=== PATIENT | female | born 1945 | race Two or more races ===

== ENCOUNTER 2017-04-25 16:31 | Emergency (ER) | payer OTHER ==
[~2017-04-25] VITALS: Ht 167.6 cm; Wt 65.8 kg
[2017-04-25] MEDS ORDERED: ZOCOR5 MG (16:48)
[2017-04-25] MEDS ORDERED: NEXIUM 24HR20 M1 (16:48)
[2017-04-25] MEDS ORDERED: TENORMIN25 MG (16:48)
[2017-04-25] MEDS ORDERED: [UNRECOGNIZED DRUG - OTHER] (16:49)
[2017-04-26] MEDS ORDERED: LEVSIN/SL0.125 MG SL (01:05)
[2017-04-26] MEDS ORDERED: CIPRO500 MG PO (01:05)
== END 2017-04-26 01:13 | disposition home or self-care (01) ==
LOC: ER 16:31
DX: R10.32 Left lower quadrant pain (principal); N39.0 Urinary tract infection, site not specified

== ENCOUNTER 2017-06-26 12:46 | Emergency (ER) | payer OTHER ==
[~2017-06-26] VITALS: Ht 167.6 cm; Wt 68.0 kg
[~2017-06-26 12:46] MED LIST: CIPRO500 MG PO; LEVSIN/SL0.125 MG SL; NEXIUM 24HR20 M1; TENORMIN25 MG; ZOCOR5 MG; [UNRECOGNIZED DRUG - OTHER]
[2017-06-26] MEDS ORDERED: NEXIUM40 M1 (12:53)
[2017-06-26] MEDS ORDERED: CALTRATE+D3 PL1 EACH (12:53)
== END 2017-06-26 23:20 | disposition home or self-care (01) ==
LOC: ER 12:46
DX: R10.84 Generalized abdominal pain (principal)

== ENCOUNTER 2017-06-28 17:47 | Inpatient (IN) | payer OTHER ==
[~2017-06-28] VITALS: Ht 167.6 cm; Wt 68.0 kg
[~2017-06-28 17:47] MED LIST changes: +CALTRATE+D3 PL1 EACH; +NEXIUM40 M1
== END 2017-07-11 14:02 | disposition home or self-care (01) | DRG 330 ==
LOC: ER 17:47 → MEDI 06-29 08:30
PROVIDERS: Surgery
PROC: BW21YZZ Computerized Tomography (CT Scan) of Abdomen and Pelvis using Other Contrast (ICD-10-PCS; 2017-06-29)
PROC: 3E0336Z Introduction of Nutritional Substance into Peripheral Vein, Percutaneous Approach (ICD-10-PCS; 2017-07-02)
PROC: 0WJG4ZZ Inspection of Peritoneal Cavity, Percutaneous Endoscopic Approach (ICD-10-PCS; 2017-07-03)
PROC: 0DN80ZZ Release Small Intestine, Open Approach (ICD-10-PCS; 2017-07-03)
PROC: 0DQ80ZZ Repair Small Intestine, Open Approach (ICD-10-PCS; principal; 2017-07-03 11:00)
PROC: 02HV33Z Insertion of Infusion Device into Superior Vena Cava, Percutaneous Approach (ICD-10-PCS; 2017-07-04)
PROC: 3E0F7GC Introduction of Other Therapeutic Substance into Respiratory Tract, Via Natural or Artificial Opening (ICD-10-PCS; 2017-07-07)
DX: K56.51 Intestinal adhesions [bands], with partial obstruction (principal); K91.71 Accidental puncture and laceration of a digestive system organ or structure during a digestive system procedure; B02.8 Zoster with other complications; K91.89 Other postprocedural complications and disorders of digestive system; E86.0 Dehydration; I10 Essential (primary) hypertension; E78.4 Other hyperlipidemia; K29.60 Other gastritis without bleeding; K52.89 Other specified noninfective gastroenteritis and colitis; D50.8 Other iron deficiency anemias; K56.0 Paralytic ileus; R05 Cough

== ENCOUNTER 2017-07-21 22:32 | Inpatient (IN) | payer OTHER ==
[~2017-07-21] VITALS: Ht 167.6 cm; Wt 63.5 kg
[2017-07-29] MEDS ORDERED: HYOSCYAMINE0.125 M1 SL (14:18)
[2017-07-29] MEDS ORDERED: GASTRACE CAPSU1 EACH PO (14:19)
[2017-07-29] MEDS ORDERED: GAS RELIEF125 M1 PO (14:20)
[2017-07-29] MEDS ORDERED: MILK OF MA400 MG/5 M PO (14:21)
== END 2017-07-29 15:43 | disposition home or self-care (01) | DRG 390 ==
LOC: ER 22:32 → SURH 07-22 08:37
PROC: 3E0336Z Introduction of Nutritional Substance into Peripheral Vein, Percutaneous Approach (ICD-10-PCS; principal; 2017-07-22)
PROC: 05H333Z Insertion of Infusion Device into Right Innominate Vein, Percutaneous Approach (ICD-10-PCS; 2017-07-25)
DX: K56.690 Other partial intestinal obstruction (principal); I10 Essential (primary) hypertension; E78.4 Other hyperlipidemia; E86.0 Dehydration; D64.89 Other specified anemias; K59.09 Other constipation

== ENCOUNTER 2017-08-30 20:13 | Emergency (ER) | payer OTHER ==
[~2017-08-30] VITALS: Ht 167.6 cm; Wt 62.6 kg
[~2017-08-30 20:13] MED LIST changes: +GAS RELIEF125 M1 PO; +GASTRACE CAPSU1 EACH PO; +HYOSCYAMINE0.125 M1 SL; +MILK OF MA400 MG/5 M PO
== END 2017-08-30 23:56 | disposition home or self-care (01) ==
LOC: ER 20:13
DX: K29.60 Other gastritis without bleeding (principal)

== ENCOUNTER 2017-09-26 07:44 | Emergency (ER) | payer OTHER ==
[~2017-09-26] VITALS: Ht 167.6 cm; Wt 62.1 kg
[2017-09-26] MEDS ORDERED: FENOFIBRATE40 MG (08:05)
[2017-09-26] MEDS ORDERED: ZOCOR20 MG (08:06)
[2017-09-26] MEDS ORDERED: ASPIR 8181 MG (08:06)
== END 2017-09-26 16:16 | disposition home or self-care (01) ==
LOC: ER 07:44
DX: R10.11 Right upper quadrant pain (principal); R10.12 Left upper quadrant pain

== ENCOUNTER 2017-10-19 22:09 | Emergency (ER) | payer OTHER ==
[~2017-10-19] VITALS: Ht 167.6 cm; Wt 61.7 kg
[~2017-10-19 22:09] MED LIST changes: +ASPIR 8181 MG; +FENOFIBRATE40 MG; +ZOCOR20 MG
== END 2017-10-20 05:30 | disposition home or self-care (01) ==
LOC: ER 22:09
DX: K52.9 Noninfective gastroenteritis and colitis, unspecified (principal); R10.84 Generalized abdominal pain

== ENCOUNTER 2018-02-11 15:40 | Emergency (ER) | payer OTHER ==
[~2018-02-11] VITALS: Ht 167.6 cm; Wt 61.7 kg
== END 2018-02-11 22:15 | disposition home or self-care (01) ==
LOC: ER 15:40
DX: K29.60 Other gastritis without bleeding (principal)

== ENCOUNTER 2018-02-21 20:38 | Emergency (ER) | payer OTHER ==
[~2018-02-21] VITALS: Ht 167.6 cm; Wt 61.7 kg
== END 2018-02-21 23:27 | disposition home or self-care (01) ==
LOC: ER 20:38
DX: K29.60 Other gastritis without bleeding (principal)

== ENCOUNTER 2018-04-04 10:47 | Inpatient (IN) | payer OTHER ==
[~2018-04-04] VITALS: Ht 167.6 cm; Wt 61.7 kg
--- NOTE | 2018-04-04 11:00 | NUR ---
SE RECIBE PTE ALERTA Y ORIENTADA X 3 ESFERAS, LA CUAL REFIERE DOLOR ABDOMINAL Y NAUSEAS LO CUAL COMENZO HOY EN LA MANANA. PTE DE LA DRA Lashawn STOCK. SE UBICA EN AREA DE OBSERVACION.
--- NOTE | 2018-04-04 11:30 | NUR ---
EVALUA PTE. SE ORIENTA A PTE SOBRE [place] MEDICO. PTE REFIERE COMPRENDER. SE EXTRAEN MUESTRAS DE LABORATORIOS BAJO MEDIDAS ASEPTICAS. SE ADMINISTRAN MEDICAMENTOS [facility]ICA.
== END 2018-04-06 14:42 | disposition home or self-care (01) | DRG 390 ==
LOC: ER 10:47 → SURG 22:36
PROVIDERS: ADMIT Surgery
PROC: BW20ZZZ Computerized Tomography (CT Scan) of Abdomen (ICD-10-PCS; principal; 2018-04-04)
DX: K56.690 Other partial intestinal obstruction (principal); I10 Essential (primary) hypertension; E78.49 Other hyperlipidemia; M81.8 Other osteoporosis without current pathological fracture; K21.9 Gastro-esophageal reflux disease without esophagitis

== ENCOUNTER 2018-10-30 15:51 | Emergency (ER) | payer OTHER ==
[~2018-10-30] VITALS: Ht 167.6 cm; Wt 59.4 kg
[2018-10-30] MEDS ORDERED: OMEPRAZOLE10 MG (16:22)
[2018-10-30] MEDS ORDERED: PEPCID AC20 MG PO (23:04)
[2018-10-30] MEDS ORDERED: LEVSIN/SL0.125 MG SL (23:04)
[2018-10-30] MEDS ORDERED: INTESTINEX680 M1 PO (23:04)
== END 2018-10-30 23:26 ==
LOC: ER 15:51
DX: R10.13 Epigastric pain (principal)

== ENCOUNTER 2018-11-09 03:56 | Emergency (ER) | payer OTHER ==
[~2018-11-09] VITALS: Ht 167.6 cm; Wt 59.9 kg
[~2018-11-09 03:56] MED LIST changes: +INTESTINEX680 M1 PO; +OMEPRAZOLE10 MG; +PEPCID AC20 MG PO
== END 2018-11-09 10:03 | disposition home or self-care (01) ==
LOC: ER 03:56
DX: R10.11 Right upper quadrant pain (principal); R10.12 Left upper quadrant pain

== ENCOUNTER 2018-11-09 18:35 | Emergency (ER) | payer OTHER ==
[~2018-11-09] VITALS: Ht 167.6 cm; Wt 59.9 kg
== END 2018-11-09 23:57 | disposition home or self-care (01) ==
LOC: ER 18:35
DX: R10.84 Generalized abdominal pain (principal)

== ENCOUNTER 2019-02-23 19:05 | Emergency (ER) | payer OTHER ==
[~2019-02-23] VITALS: Ht 165.1 cm; Wt 70.3 kg
== END 2019-02-23 23:17 | disposition home or self-care (01) ==
LOC: ER 19:05
DX: K59.09 Other constipation (principal)

== ENCOUNTER 2019-08-11 09:20 | Emergency (ER) | payer OTHER ==
[~2019-08-11] VITALS: Ht 167.6 cm; Wt 62.6 kg
== END 2019-08-11 13:37 | disposition home or self-care (01) ==
LOC: ER 09:20
DX: K57.30 Diverticulosis of large intestine without perforation or abscess without bleeding (principal)

== ENCOUNTER 2019-11-24 17:40 | Emergency (ER) | payer OTHER ==
[~2019-11-24] VITALS: Ht 167.6 cm; Wt 63.5 kg
[2019-11-25] MEDS ORDERED: LEVSIN/SL0.125 MG SL (02:11)
[2019-11-25] MEDS ORDERED: PEPCID40 MG PO (02:11)
== END 2019-11-25 02:19 ==
LOC: ER 17:40
DX: K29.60 Other gastritis without bleeding (principal)

== ENCOUNTER 2019-11-27 16:36 | Emergency (ER) | payer OTHER ==
[~2019-11-27] VITALS: Ht 167.6 cm; Wt 63.0 kg
[~2019-11-27 16:36] MED LIST changes: +PEPCID40 MG PO
[2019-11-27] MEDS ORDERED: AMITIZA24 MCG (16:50)
== END 2019-11-28 13:59 | disposition home or self-care (01) ==
LOC: ER 16:36
DX: K52.89 Other specified noninfective gastroenteritis and colitis (principal); K57.30 Diverticulosis of large intestine without perforation or abscess without bleeding; R10.814 Left lower quadrant abdominal tenderness; Z03.818 Encounter for observation for suspected exposure to other biological agents ruled out

== ENCOUNTER 2020-03-01 17:47 | Inpatient (IN) | payer OTHER ==
[~2020-03-01] VITALS: Ht 167.6 cm; Wt 65.3 kg
[~2020-03-01 17:47] MED LIST changes: +AMITIZA24 MCG
[2020-03-01] MEDS ORDERED: MIRALAX17 GM (18:09)
[2020-03-01] MEDS ORDERED: COZAAR25 MG (18:09)
--- NOTE | 2020-03-01 18:09 | NUR ---
SE RECIBE PTE ALERTA Y ORIENTADA X3,REFIERE TENER DOLOR ABDOMINAL ,NAUSEAS,MCCANN IRA EN VARIAS OCASIONES A EVACUAR REFIERE QUE NO ES DIARREAS.
--- NOTE | 2020-03-01 19:00 | NUR ---
SE ORIENTA AL PACIENTE SOBRE EL TX. SE EXTRAEN MUESTRAS DE JACQUI BAJO MEDIDAS ASEPTICAS SE ROTULAN Y ENVIAN AL LABORATORIO. SE CANALIZA Y ADMINISTRAN MEDICAMENTOS [facility] MEDICA.
[2020-03-04] MEDS ORDERED: HYOSCYAMINE0.125 M1 SL (08:54)
[2020-03-04] MEDS ORDERED: PEPCID40 MG PO (08:54)
[2020-03-04] MEDS ORDERED: MIRALAX17 GM PO (08:55)
== END 2020-03-04 14:36 | disposition home or self-care (01) | DRG 390 ==
LOC: ER 17:47 → SURH 21:20
PROVIDERS: ADMIT Surgery; ATTEND Surgery
PROC: BW21ZZZ Computerized Tomography (CT Scan) of Abdomen and Pelvis (ICD-10-PCS; principal; 2020-03-01)
DX: K56.690 Other partial intestinal obstruction (principal); Z20.828 Contact with and (suspected) exposure to other viral communicable diseases

== ENCOUNTER 2020-04-29 00:04 | Emergency (ER) | payer OTHER ==
[~2020-04-29] VITALS: Ht 167.6 cm; Wt 62.6 kg
[~2020-04-29 00:04] MED LIST changes: +COZAAR25 MG; +MIRALAX17 GM; +MIRALAX17 GM PO
== END 2020-04-29 13:35 | disposition home or self-care (01) ==
LOC: ER 00:04
DX: K52.89 Other specified noninfective gastroenteritis and colitis (principal); R10.13 Epigastric pain

== ENCOUNTER 2020-05-06 10:35 | Emergency (ER) | payer OTHER ==
[~2020-05-06] VITALS: Ht 160 cm; Wt 78.9 kg
[2020-05-06] MEDS ORDERED: LEVOFLOXACIN500 MG PO (15:45)
[2020-05-06] MEDS ORDERED: LEVSIN/SL0.125 MG SL (15:45)
[2020-05-06] MEDS ORDERED: PEPCID AC20 MG PO (15:45)
[2020-05-06] MEDS ORDERED: FLAGYL500MG PO (15:45)
[2020-05-06] MEDS ORDERED: INTESTINEX680 M1 PO (15:45)
== END 2020-05-06 15:55 | disposition home or self-care (01) ==
LOC: ER 10:35
DX: R10.31 Right lower quadrant pain (principal)

== ENCOUNTER 2020-05-10 14:20 | Emergency (ER) | payer OTHER ==
[~2020-05-10] VITALS: Ht 167.6 cm; Wt 65.8 kg
[~2020-05-10 14:20] MED LIST changes: +FLAGYL500MG PO; +LEVOFLOXACIN500 MG PO
== END 2020-05-10 17:33 | disposition home or self-care (01) ==
LOC: ER 14:20
DX: K29.60 Other gastritis without bleeding (principal)

== ENCOUNTER 2020-05-19 07:38 | Outpatient (CLI) | payer OTHER | END 2020-05-19 07:42 | disposition home or self-care (01) | LOC: RX STUDY 07:38 | PROVIDERS: ATTEND Surgery | DX: K59.09 Other constipation (principal); K56.690 Other partial intestinal obstruction; K66.0 Peritoneal adhesions (postprocedural) (postinfection); A09 Infectious gastroenteritis and colitis, unspecified ==

== ENCOUNTER 2020-05-30 06:46 | Inpatient (IN) | payer OTHER ==
[~2020-05-30] VITALS: Ht 167.6 cm; Wt 62.6 kg
[2020-06-01] MEDS ORDERED: OXYC1TAB9 (08:49)
[2020-06-01] MEDS ORDERED: AMITIZA24 MCG (08:49)
[2020-06-01] MEDS ORDERED: SUCRALFATE1 GM (08:49)
[2020-06-08] MEDS ORDERED: AMITIZA24 MCG PO (16:22)
[2020-06-08] MEDS ORDERED: ULTRAM50 MG PO (16:23)
[2020-06-08] MEDS ORDERED: LEVSIN/SL0.125 MG SL (16:24)
== END 2020-06-08 20:23 | disposition home or self-care (01) | DRG 331 ==
LOC: ER 06:46 → SEC-K 05-31 07:45 → MEDI 05-31 07:45 → SURH 06-01 17:23
PROVIDERS: ADMIT Surgery; ATTEND Surgery
PROC: 0DNW0ZZ Release Peritoneum, Open Approach (ICD-10-PCS; 2020-06-01)
PROC: 0WJG4ZZ Inspection of Peritoneal Cavity, Percutaneous Endoscopic Approach (ICD-10-PCS; 2020-06-01)
PROC: 05H633Z Insertion of Infusion Device into Left Subclavian Vein, Percutaneous Approach (ICD-10-PCS; 2020-06-01)
PROC: 0DQ80ZZ Repair Small Intestine, Open Approach (ICD-10-PCS; principal; 2020-06-01 16:45)
DX: K56.51 Intestinal adhesions [bands], with partial obstruction (principal); I10 Essential (primary) hypertension; Z20.822 Contact with and (suspected) exposure to COVID-19; K59.09 Other constipation; E86.0 Dehydration; Z53.31 Laparoscopic surgical procedure converted to open procedure

== ENCOUNTER 2020-06-10 22:20 | Inpatient (IN) | payer OTHER ==
[~2020-06-10] VITALS: Ht 167.6 cm; Wt 59.0 kg
[~2020-06-10 22:20] MED LIST changes: +AMITIZA24 MCG PO; +OXYC1TAB9; +SUCRALFATE1 GM; +ULTRAM50 MG PO
--- NOTE | 2020-06-10 22:41 | NUR ---
SE RECIBE PACIENTE ALERTA, ORIENTADA X 3 ESFERAS REFIERE TENER DOLOR ABDOMINAL Y NAUSEAS. OPERADA EL 2020 DE INTESTINO CAMERON PTE. DRA.MARLA STOCK. SE UBICA EN AREA DE OBSERVACION [place] # 06 CON BARRANDAS ELEVADAS A NIVEL MAS BAJO.
--- NOTE | 2020-06-10 23:26 | NUR ---
SE REALIZAN ORDENES MEDICAS EN [place] TOTALIDAD. SE ORIENTA A PACIENTE SOBRE MEDICAMENTOS ADMINISTRADOS Y MUESTRAS ORDENADOS. PACIENTE REFIERE ENTENDER. SE MANTIENE PACIENTE EN OBSERVACION PARA CAMBIOS SIGNIFICATIVOS DENTRO DE [place] CONDICION
--- NOTE | 2020-06-11 01:44 | NUR ---
SE INSERTA TNG #18 EN FOSA NASAL DERECHA, SE VERIFICA PATENTICIDAD. PRESENTA RESIDUAL GASTRICO 150ML COLOR DARIEL SUNITA. SE CONECTA A SUCCION BAJA INTERMITENTE. SE MANTIENE EN POSICION SEMI-HECK.
--- NOTE | 2020-06-11 08:30 | NUR ---
SE RECIBE PTE DEL TURNO ANTERIOR, ALERTA Y ORIENTADA X 3 ESFERAS, UBICADA EN RONNY NIVEL MAS BAJO GARCIA DE IDENTIFICACION Y BARANDAS ELEVADAS POR PRECAUCION, EN COMPANIA DE FAMILIAR. SE OBSERVA COM BUEN PATRON RESPIRATORIO Y PIEL TIBIA AL TACTO. IV PATENTE Y TERESA DE EDEMA O ERITEMA CON 0.9% NSS @100ML/HR. PTE CON NGT EN FOSA NASAL RT, PATENTE CONECTADO A SUCCION INTERMITENTE BAJA, SE OBSERVA OUTPUT GASTRICO DE APROXIMADAMENTE 200ML COLOR DARIEL. DR GU INDICA DESCONECTAR DE SUCCION INTERMITENTE HASTA SER EVALUADA POR LA DRA STOCK. PENDIENTE A CONSULTA OCN LA DRA STOCK. SE MANTIENE BAJO OBSERVACION.
[2020-07-06] MEDS ORDERED: LEVSIN/SL0.125 MG SL (11:18)
[2020-07-06] MEDS ORDERED: ULTRAM50 MG PO (11:18)
[2020-07-06] MEDS ORDERED: JUVEN PACKET1 EAC1 PO (11:18)
== END 2020-07-06 17:58 | disposition home or self-care (01) | DRG 863 ==
LOC: ER 22:20 → SURH 06-11 11:23
PROVIDERS: ADMIT Surgery; ATTEND Surgery
PROC: BW2110Z Computerized Tomography (CT Scan) of Abdomen and Pelvis using Low Osmolar Contrast, Unenhanced and Enhanced (ICD-10-PCS; 2020-06-10)
PROC: 0W9J30Z Drainage of Pelvic Cavity with Drainage Device, Percutaneous Approach (ICD-10-PCS; principal; 2020-06-13)
PROC: 02HV33Z Insertion of Infusion Device into Superior Vena Cava, Percutaneous Approach (ICD-10-PCS; 2020-06-13)
PROC: BW2110Z Computerized Tomography (CT Scan) of Abdomen and Pelvis using Low Osmolar Contrast, Unenhanced and Enhanced (ICD-10-PCS; 2020-06-21)
PROC: BW2110Z Computerized Tomography (CT Scan) of Abdomen and Pelvis using Low Osmolar Contrast, Unenhanced and Enhanced (ICD-10-PCS; 2020-07-04)
DX: T81.49XA Infection following a procedure, other surgical site, initial encounter (principal); N73.0 Acute parametritis and pelvic cellulitis; E87.0 Hyperosmolality and hypernatremia; Z16.30 Resistance to unspecified antimicrobial drugs; B95.2 Enterococcus as the cause of diseases classified elsewhere; B02.9 Zoster without complications; F43.21 Adjustment disorder with depressed mood; R53.81 Other malaise; K57.30 Diverticulosis of large intestine without perforation or abscess without bleeding; I10 Essential (primary) hypertension; E11.9 Type 2 diabetes mellitus without complications; E78.5 Hyperlipidemia, unspecified; Z20.822 Contact with and (suspected) exposure to COVID-19

== ENCOUNTER → 2020-07-20 | Outpatient (CLI) | payer OTHER ==
[~2020-07-20] MED LIST changes: +JUVEN PACKET1 EAC1 PO
== END | disposition home or self-care (01) ==
LOC: TOM 07:14
PROVIDERS: ATTEND Surgery
DX: K63.2 Fistula of intestine (principal)
CPT/HCPCS: 74177; A9698

== ENCOUNTER 2020-11-16 19:19 | Inpatient (IN) | payer OTHER ==
[~2020-11-16] VITALS: Ht 167.6 cm; Wt 58.1 kg
[2020-11-16] MEDS ORDERED: CRESTOR20 MG PO (20:15)
[2020-11-16] MEDS ORDERED: MIRALAX17 GM (20:16)
[2020-11-17] MEDS ORDERED: OMEPRAZOLE40 MG (13:50)
[2020-11-19] MEDS ORDERED: CHLORDIAZEPOXI1 EACH PO (11:58)
[2020-11-19] MEDS ORDERED: PROTONIX40 MG PO (11:59)
[2020-11-19] MEDS ORDERED: ANTI-GAS166 MG PO (12:00)
[2020-11-19] MEDS ORDERED: INTESTINEX680 M1 PO (12:01)
== END 2020-11-19 13:32 | disposition home or self-care (01) | DRG 390 ==
LOC: ER 19:19 → SEC-K 11-17 08:32 → SURH 11-17 17:47
PROVIDERS: ADMIT Surgery; ATTEND Surgery
PROC: BW211ZZ Computerized Tomography (CT Scan) of Abdomen and Pelvis using Low Osmolar Contrast (ICD-10-PCS; principal; 2020-11-17)
DX: K56.699 Other intestinal obstruction unspecified as to partial versus complete obstruction (principal); K59.00 Constipation, unspecified; K57.90 Diverticulosis of intestine, part unspecified, without perforation or abscess without bleeding; E86.0 Dehydration; R10.32 Left lower quadrant pain; R11.2 Nausea with vomiting, unspecified; I10 Essential (primary) hypertension; E78.5 Hyperlipidemia, unspecified; Z20.822 Contact with and (suspected) exposure to COVID-19

== ENCOUNTER 2021-04-27 13:25 | Inpatient (IN) | payer OTHER ==
[~2021-04-27] VITALS: Ht 167.6 cm; Wt 65.3 kg
[~2021-04-27 13:25] MED LIST changes: +ANTI-GAS166 MG PO; +CHLORDIAZEPOXI1 EACH PO; +CRESTOR20 MG PO; +OMEPRAZOLE40 MG; +PROTONIX40 MG PO
== END 2021-05-03 09:22 | disposition home or self-care (01) | DRG 390 ==
LOC: ER 13:25 → SURG 04-28 12:39
PROVIDERS: ADMIT Surgery; ATTEND Surgery
PROC: BW21YZZ Computerized Tomography (CT Scan) of Abdomen and Pelvis using Other Contrast (ICD-10-PCS; principal; 2021-04-28)
DX: K56.690 Other partial intestinal obstruction (principal); K57.30 Diverticulosis of large intestine without perforation or abscess without bleeding; R10.9 Unspecified abdominal pain; K66.0 Peritoneal adhesions (postprocedural) (postinfection); I10 Essential (primary) hypertension; B02.9 Zoster without complications; E78.49 Other hyperlipidemia; Z20.822 Contact with and (suspected) exposure to COVID-19

== ENCOUNTER 2021-09-30 17:46 | Inpatient (IN) | payer OTHER ==
[~2021-09-30] VITALS: Ht 167.6 cm; Wt 65.3 kg
--- NOTE | 2021-09-30 18:31 | NUR ---
PTE SE RECIBE POR DOLOR DE ESTOMAGO MARCIAL REFIERE PTE.
--- NOTE | 2021-09-30 20:00 | NUR ---
SE ORIENTA A PTE SOBRE TRATAMIENTO A SEGUIR, HOLLIE REFIERE ENTENDER. SE LE COLECTA MUESTRAS [facility] MEDICA UTILIZANDO MEDIDAS ASEPTICAS. SE INTENTA MULTIPLES VECES CANALIZAR NO SE LOGRA. CT PENDIENTE
--- NOTE | 2021-09-30 21:13 | NUR ---
SE INTENTA MULTIPLES VECES COLECTA MUESTRA PARA PTT-PT-INR NO SE LOGRA AL MOMENTO.
--- NOTE | 2021-10-01 07:22 | NUR ---
SE RECIBE PACIENTE FEMENINA ALERTADA ORIENTADA EN [place] ESFERAS LA CUAL SE OBSERVA CON BUEN PATRON RESPIRATORIO, CANALIZACION EN MANO RT PATENTE, LIMPIA Y SECA CON IVF RL AT 100ML/HR. PACIENTE PENDIENTE A CONSUULTA CON DR Malika MONT[place] Y RESULTADOS DE LABORATORIOS. SE MANTIENE PACIENTE EN OBSERVACION.
[2021-10-03] MEDS ORDERED: DICYCLOMINE HCL20 MG (08:01)
[2021-10-03] MEDS ORDERED: IRBESARTAN75 MG (08:01)
[2021-10-04] MEDS ORDERED: LEVSIN/SL0.125 MG SL (11:30)
[2021-10-04] MEDS ORDERED: PROTONIX40 MG PO (11:30)
[2021-10-04] MEDS ORDERED: INTESTINEX680 M1 PO (11:30)
== END 2021-10-04 13:24 | disposition home or self-care (01) | DRG 390 ==
LOC: ER 17:46 → SURG 10-01 11:54 → SURH 10-01 11:54
PROVIDERS: ADMIT Surgery; ATTEND Surgery
DX: K56.690 Other partial intestinal obstruction (principal); R10.9 Unspecified abdominal pain; I10 Essential (primary) hypertension; D72.828 Other elevated white blood cell count; Z20.822 Contact with and (suspected) exposure to COVID-19

== ENCOUNTER 2021-10-13 09:01 | Inpatient (IN) | payer OTHER ==
[~2021-10-13] VITALS: Ht 165.1 cm; Wt 56.7 kg
[~2021-10-13 09:01] MED LIST changes: +DICYCLOMINE HCL20 MG; +IRBESARTAN75 MG
[2021-10-16] MEDS ORDERED: FAMOTIDINE20 MG (16:05)
[2021-10-16] MEDS ORDERED: CLONAZEPAM0.5 MG (16:06)
[2021-10-16] MEDS ORDERED: DICYCLOMINE HCL20 MG (16:06)
[2021-10-20] MEDS ORDERED: VANCOMYCIN HCL125 MG PO (15:51)
== END 2021-10-20 18:06 | disposition home or self-care (01) | DRG 389 ==
LOC: ER 09:01 → SEC-K 22:00 → SURH 22:00
PROVIDERS: ADMIT Surgery; ATTEND Surgery
PROC: BW21YZZ Computerized Tomography (CT Scan) of Abdomen and Pelvis using Other Contrast (ICD-10-PCS; principal; 2021-10-13)
DX: K56.600 Partial intestinal obstruction, unspecified as to cause (principal); A04.72 Enterocolitis due to Clostridium difficile, not specified as recurrent; K21.9 Gastro-esophageal reflux disease without esophagitis; I10 Essential (primary) hypertension; E78.49 Other hyperlipidemia; Z20.822 Contact with and (suspected) exposure to COVID-19

== ENCOUNTER 2022-01-19 11:02 | Emergency (ER) | payer OTHER ==
[~2022-01-19] VITALS: Ht 167.6 cm; Wt 63.5 kg
[~2022-01-19 11:02] MED LIST changes: +CLONAZEPAM0.5 MG; +FAMOTIDINE20 MG; +VANCOMYCIN HCL125 MG PO
[2022-01-19] MEDS ORDERED: DICY20TA PO (11:21)
== END 2022-01-19 21:32 | disposition home or self-care (01) ==
LOC: ER 11:02
DX: R10.9 Unspecified abdominal pain (principal); Z88.6 Allergy status to analgesic agent; I10 Essential (primary) hypertension; Z87.19 Personal history of other diseases of the digestive system; Z98.890 Other specified postprocedural states

== ENCOUNTER 2022-05-13 13:46 | Emergency (ER) | payer OTHER ==
[~2022-05-13] VITALS: Ht 167.6 cm; Wt 65.3 kg
[~2022-05-13 13:46] MED LIST changes: +DICY20TA PO
== END 2022-05-13 19:44 | disposition home or self-care (01) ==
LOC: ER 13:46
DX: K52.9 Noninfective gastroenteritis and colitis, unspecified (principal); Z88.8 Allergy status to other drugs, medicaments and biological substances; I10 Essential (primary) hypertension; N39.0 Urinary tract infection, site not specified

== ENCOUNTER 2022-06-14 06:23 | Emergency (ER) | payer OTHER ==
[~2022-06-14] VITALS: Ht 167.6 cm; Wt 65.3 kg
== END 2022-06-14 13:51 | disposition home or self-care (01) ==
LOC: ER 06:23
DX: R10.84 Generalized abdominal pain (principal); Z87.19 Personal history of other diseases of the digestive system; Z88.8 Allergy status to other drugs, medicaments and biological substances; K57.92 Diverticulitis of intestine, part unspecified, without perforation or abscess without bleeding; I10 Essential (primary) hypertension; R11.0 Nausea

== ENCOUNTER 2022-09-09 16:43 | Emergency (ER) | payer OTHER ==
[~2022-09-09] VITALS: Ht 167.6 cm; Wt 65.3 kg
[2022-09-09] MEDS ORDERED: PRILOSEC OTC20 MG (17:02)
== END 2022-09-09 22:39 | disposition home or self-care (01) ==
LOC: ER 16:43
DX: K57.90 Diverticulosis of intestine, part unspecified, without perforation or abscess without bleeding (principal); R10.84 Generalized abdominal pain

== ENCOUNTER 2023-03-05 14:52 | Inpatient (IN) | payer OTHER ==
[~2023-03-05] VITALS: Ht 167.6 cm; Wt 68.0 kg
[~2023-03-05 14:52] MED LIST changes: +PRILOSEC OTC20 MG
[2023-03-05 17:16] LABS: HEMATOCRIT 33.6 % (36.0-45.00); HEMOGLOBIN 11.5 g/dL (12.0-15.00); MEAN CELL VOLUME 80.2 fL (80.00-100.00); MEAN CORPUSCULAR HEMOGLOBIN 27.4 pg (27.00-32.0); MEAN CORPUSCULAR HGB CONC 34.2 g/dl (32.0-36.0); PLATELET COUNT 308 K/uL (150-450); RED BLOOD COUNT 4.19 M/uL (4.00-6.00); RED CELL DISTRIBUTION WIDTH 14.7 % (11.5-14.5)
[2023-03-05 17:31] LABS: CALCIUM 9.8 mg/dL (8.5-10.1); CREATININE SERUM 1.4 mg/dL (0.55-1.02); GFR 36.46; POTASSIUM 4.2 mEq/L (3.5-5.1)
[2023-03-05 18:49] LABS: URINE APPEARANCE Clear; URINE BILIRRUBIN Negative (NEGATIVE); URINE BLOOD Negative; URINE COLOR Yellow; URINE GLUCOSE Negative (NEGATIVE); URINE LEUKOCYTE Negative; URINE NITRATE Negative; URINE PROTEIN Negative (NEGATIVE); URINE UROBILINOGEN 0.2 E.U./dl
[2023-03-05 18:50] LABS: URINE BACTERIA 86.8 uL (0.0-1933); URINE EPITHELIAL CELLS 4.7 uL (0.0-38.8); URINE WBC 5.5 uL (0.0-23.2)
[2023-03-05 18:54] LABS: URINE RBC 1.4 uL (0.0-20.8)
[2023-03-06 01:02] LABS: INR 1.01; PARTIAL THROMBOPLASTIN TIME 26.6 SECONDS (22.0-34.0); PROTHROMBIN TIME 10.6 SECONDS (9.0-11.5)
[2023-03-06 07:01] LABS: CALCIUM 8.6 mg/dL (8.5-10.1); CREATININE SERUM 1.26 mg/dL (0.55-1.02); GFR 41.18; POTASSIUM 4.83 mEq/L (3.5-5.1)
[2023-03-06] MEDS ORDERED: LINZESS145 MCG (09:06)
[2023-03-06] MEDS ORDERED: PANTOPRAZOLE SO40 MG (09:06)
[2023-03-06] MEDS ORDERED: NITROGLYCERIN0.4 MG (09:06)
[2023-03-06] MEDS ORDERED: FAMOTIDINE20 MG (09:06)
[2023-03-06] MEDS ORDERED: EZETIMIBE10 MG (09:06)
[2023-03-06] MEDS ORDERED: ROSUVASTATIN CA20 MG (09:06)
== END 2023-03-08 14:48 | disposition home or self-care (01) | DRG 390 ==
LOC: ER 14:52 → SURH 23:10
PROVIDERS: Emergency Medicine; General Practice; ADMIT Surgery; ATTEND Surgery
PROC: BW21YZZ Computerized Tomography (CT Scan) of Abdomen and Pelvis using Other Contrast (ICD-10-PCS; principal; 2023-03-05)
DX: K56.690 Other partial intestinal obstruction (principal); I10 Essential (primary) hypertension; N18.9 Chronic kidney disease, unspecified

== ENCOUNTER 2023-10-05 19:53 | Emergency (ER) | payer OTHER ==
[~2023-10-05] VITALS: Ht 167.6 cm; Wt 65.3 kg
[~2023-10-05 19:53] MED LIST changes: +EZETIMIBE10 MG; +LINZESS145 MCG; +METRONIDAZOLE500 MG PO; +NITROGLYCERIN0.4 MG; +PANTOPRAZOLE SO40 MG; +ROSUVASTATIN CA20 MG
[2023-10-05] MEDS ORDERED: PANTOPRAZOLE SODIUM 40 MG/VIAL VIAL IV ONE (21:45)
[2023-10-05] MEDS ORDERED: ONDANSETRON HCL 2 MG/ML VIAL IV ONE (21:45)
[2023-10-05 22:34] LABS: PH,URINE 7.5 (5.0-8.0); URINE APPEARANCE Clear; URINE BILIRRUBIN Negative (NEGATIVE); URINE BLOOD Negative; URINE COLOR Yellow; URINE GLUCOSE Negative (NEGATIVE); URINE LEUKOCYTE Negative; URINE NITRATE Negative; URINE PROTEIN Negative (NEGATIVE); URINE UROBILINOGEN 0.2 E.U./dl
[2023-10-05 22:38] LABS: URINE BACTERIA 54.1 uL (0.0-1933); URINE WBC 3.5 uL (0.0-23.2)
[2023-10-05 22:39] LABS: URINE EPITHELIAL CELLS 0.6 uL (0.0-38.8); URINE RBC 1.2 uL (0.0-20.8)
[2023-10-05 23:26] LABS: HEMATOCRIT 35.3 % (36.0-45.00); HEMOGLOBIN 11.6 g/dL (12.0-15.00); MEAN CELL VOLUME 80.4 fL (80.00-100.00); MEAN CORPUSCULAR HEMOGLOBIN 26.4 pg (27.00-32.0); MEAN CORPUSCULAR HGB CONC 32.9 g/dl (32.0-36.0); PLATELET COUNT 291 K/uL (150-450); RED BLOOD COUNT 4.39 M/uL (4.00-6.00); RED CELL DISTRIBUTION WIDTH 14.3 % (11.5-14.5)
[2023-10-05 23:47] LABS: ALBUMIN 3.9 gm/dL (3.4-5.0); BILIRUBIN TOTAL 0.43 mg/dL (0.3-1.2); CALCIUM 8.9 mg/dL (8.5-10.1); CREATININE SERUM 1.5 mg/dL (0.55-1.02); GFR 33.58; GLOBULINA 3.8 G/DL (2.4-3.5); POTASSIUM 4.55 mEq/L (3.5-5.1); TOTAL PROTEIN 7.7 gm/dL (6.4-8.2)
== END 2023-10-06 00:50 | disposition home or self-care (01) ==
LOC: ER 19:54
PROVIDERS: General Practice
DX: K52.89 Other specified noninfective gastroenteritis and colitis (principal); R10.9 Unspecified abdominal pain; I10 Essential (primary) hypertension; K57.30 Diverticulosis of large intestine without perforation or abscess without bleeding
CPT/HCPCS: 36415; 74176; 96365; 99284; J2405; J3490

== ENCOUNTER 2023-12-05 17:45 | Emergency (ER) | payer OTHER ==
[~2023-12-05] VITALS: Ht 167.6 cm; Wt 61.2 kg
[2023-12-05] MEDS ORDERED: 0.9 % SODIUM CHLORIDE 1,000 ML IV STA (19:49)
[2023-12-05] MEDS ORDERED: KETOROLAC TROMETHAMINE 30 MG VIAL ONE (19:55)
[2023-12-05] MEDS ORDERED: DICYCLOMINE HCL 10 MG CAPSULE PO ONE (19:55)
[2023-12-05] MEDS ORDERED: DICYCLOMINE HCL 20 MG TABLET PO ONE (20:00)
[2023-12-05] MEDS ORDERED: KETOROLAC TROMETHAMINE 30 MG VIAL IV ONE (20:00)
[2023-12-05 20:18] LABS: HEMATOCRIT 33.5 % (36.0-45.00); HEMOGLOBIN 11.3 g/dL (12.0-15.00); MEAN CELL VOLUME 78.8 fL (80.00-100.00); MEAN CORPUSCULAR HEMOGLOBIN 26.5 pg (27.00-32.0); MEAN CORPUSCULAR HGB CONC 33.6 g/dl (32.0-36.0); PLATELET COUNT 286 K/uL (150-450); RED BLOOD COUNT 4.26 M/uL (4.00-6.00); RED CELL DISTRIBUTION WIDTH 14.8 % (11.5-14.5)
[2023-12-05 20:45] LABS: INR 1.01; PARTIAL THROMBOPLASTIN TIME 27.7 SECONDS (22.0-34.0)
[2023-12-05 20:51] LABS: ALBUMIN 3.6 gm/dL (3.4-5.0); BILIRUBIN TOTAL 0.39 mg/dL (0.3-1.2); CALCIUM 9.1 mg/dL (8.5-10.1); CREATININE SERUM 1.59 mg/dL (0.55-1.02); GFR 31.4; GLOBULINA 3.6 G/DL (2.4-3.5); POTASSIUM 4.85 mEq/L (3.5-5.1); TOTAL PROTEIN 7.2 gm/dL (6.4-8.2)
[2023-12-05 21:10] LABS: URINE APPEARANCE Clear; URINE BILIRRUBIN Negative (NEGATIVE); URINE BLOOD Negative; URINE COLOR Yellow; URINE GLUCOSE Negative (NEGATIVE); URINE KETONE Negative (NEGATIVE); URINE LEUKOCYTE Negative; URINE NITRATE Negative; URINE PROTEIN Negative (NEGATIVE); URINE UROBILINOGEN 0.2 E.U./dl
[2023-12-05 21:11] LABS: URINE BACTERIA 13.8 uL (0.0-1933); URINE EPITHELIAL CELLS 1.6 uL (0.0-38.8)
[2023-12-05 21:20] LABS: URINE RBC 1.2 uL (0.0-20.8); URINE WBC 1.5 uL (0.0-23.2)
[2023-12-05] MEDS ORDERED: PIPERACILLIN/TAZOBACTAM SODIUM 2.25 GM VIAL IV ONE (23:00)
== END 2023-12-06 02:12 | disposition home or self-care (01) ==
LOC: ER 17:47
PROVIDERS: Emergency Medicine
DX: R10.9 Unspecified abdominal pain (principal); I10 Essential (primary) hypertension; K57.30 Diverticulosis of large intestine without perforation or abscess without bleeding; K76.0 Fatty (change of) liver, not elsewhere classified
CPT/HCPCS: 36415; 74176; 96365; 96366; 99284; J1885; J2543; J7030

== ENCOUNTER 2024-02-09 12:29 | Emergency (ER) | payer OTHER ==
[~2024-02-09] VITALS: Ht 167.6 cm; Wt 65.3 kg
[2024-02-09] MEDS ORDERED: MEPERIDINE HCL 25 MG/ML AMPUL IM STA (14:07)
[2024-02-09] MEDS ORDERED: 0.9 % SODIUM CHLORIDE 1,000 ML IV STA (14:07)
[2024-02-09] MEDS ORDERED: HYOSCYAMINE SULFATE 0.125 MG TAB.SUBL SL ONE (14:15)
[2024-02-09 15:08] LABS: HEMATOCRIT 35.9 % (36.0-45.00); HEMOGLOBIN 12.3 g/dL (12.0-15.00); MEAN CELL VOLUME 79.6 fL (80.00-100.00); MEAN CORPUSCULAR HEMOGLOBIN 27.2 pg (27.00-32.0); MEAN CORPUSCULAR HGB CONC 34.2 g/dl (32.0-36.0); PLATELET COUNT 282 K/uL (150-450); RED BLOOD COUNT 4.51 M/uL (4.00-6.00); RED CELL DISTRIBUTION WIDTH 13.9 % (11.5-14.5)
[2024-02-09 15:41] LABS: ALBUMIN 3.8 gm/dL (3.4-5.0); BILIRUBIN TOTAL 0.47 mg/dL (0.3-1.2); BILIRUBIN,CONJUGATED 0.15 mg/dL (0.0-0.2); BILIRUBIN,UNCONJUGATED 0.32 mg/dL (0.0-0.6); CALCIUM 9.9 mg/dL (8.5-10.1); CREATININE SERUM 1.35 mg/dL (0.55-1.02); GFR 37.93; POTASSIUM 3.79 mEq/L (3.5-5.1); TOTAL PROTEIN 7.9 gm/dL (6.4-8.2)
[2024-02-09 17:46] LABS: PH,URINE 6.5 (5.0-8.0); URINE APPEARANCE Clear; URINE BILIRRUBIN Negative (NEGATIVE); URINE BLOOD Negative; URINE COLOR Yellow; URINE GLUCOSE Negative (NEGATIVE); URINE KETONE Negative (NEGATIVE); URINE LEUKOCYTE Trace; URINE NITRATE Negative; URINE PROTEIN Negative (NEGATIVE); URINE UROBILINOGEN 0.2 E.U./dl
[2024-02-09 17:51] LABS: URINE BACTERIA 21.3 uL (0.0-1933); URINE WBC 10.1 uL (0.0-23.2)
[2024-02-09 17:56] LABS: URINE EPITHELIAL CELLS 1.2 uL (0.0-38.8)
== END 2024-02-09 21:23 | disposition home or self-care (01) ==
LOC: ER 12:31
PROVIDERS: General Practice
DX: R10.9 Unspecified abdominal pain (principal); I10 Essential (primary) hypertension
CPT/HCPCS: 36415; 74240; 96365; 96366; 99283; J7030

== ENCOUNTER 2024-04-20 15:16 | Inpatient (IN) | payer OTHER ==
[~2024-04-20] VITALS: Ht 157.5 cm; Wt 68.0 kg
--- NOTE | 2024-04-20 15:53 | NUR ---
PTE ALERTA Y ORIENTADA X 3 ESFERAS QUIEN REFIERE DOLOR ABDOMINAL Y NAUSEAS DESDE ESTA MANANA.REACCIONA A LA PALPACION,REFIERE HX DE SBO.
[2024-04-20] MEDS ORDERED: FAMOtidine 10 MG/ML (4ML VIAL) IV ONE (17:00)
[2024-04-20] MEDS ORDERED: 0.9 % SODIUM CHLORIDE 1,000 ML IV ONE (17:00)
[2024-04-20] MEDS ORDERED: KETOROLAC TROMETHAMINE 60 MG VIAL IM ONE ×2 (17:00→18:17)
[2024-04-20] MEDS ORDERED: ONDANSETRON HCL 2 MG/ML VIAL IV ONE (17:00)
[2024-04-20] MEDS ORDERED: FAMOTIDINE/PF 20 MG/2 ML VIAL ONE (18:25)
[2024-04-20] MEDS ORDERED: ONDANSETRON HCL 2 MG/ML VIAL ONE (18:25)
--- NOTE | 2024-04-20 19:07 | NUR ---
SE LE ORIENTA A PACIENTE SOBRE LA ORDEN MEDICA, REFIERE ENTENDER LAS MISMAS. SE LE CANALIZA Y SE LE COLOCA EL IVF'S, SE LE ANNIE LAS MUETRAS Y SE LE ADMINISTRAN LOS MEDICAMENTOS SANJAY LA ORDEN MEDICA.
[2024-04-20 19:27] LABS: HEMATOCRIT 35.7 % (36.0-45.00); MEAN CELL VOLUME 80.6 fL (80.00-100.00); MEAN CORPUSCULAR HGB CONC 33.5 g/dl (32.0-36.0); PLATELET COUNT 290 K/uL (150-450); RED BLOOD COUNT 4.43 M/uL (4.00-6.00); RED CELL DISTRIBUTION WIDTH 14.3 % (11.5-14.5)
[2024-04-20 19:29] LABS: PROTHROMBIN TIME 10.9 SECONDS (9.0-11.5)
[2024-04-20 19:33] LABS: PH,URINE 7.5 (5.0-8.0); URINE APPEARANCE Cloudy; URINE BILIRRUBIN Negative (NEGATIVE); URINE BLOOD Negative; URINE COLOR Yellow; URINE GLUCOSE Negative (NEGATIVE); URINE KETONE Negative (NEGATIVE); URINE LEUKOCYTE Large; URINE NITRATE Negative; URINE PROTEIN Negative (NEGATIVE); URINE UROBILINOGEN 0.2 E.U./dl
[2024-04-20 19:37] LABS: URINE BACTERIA 562.8 uL (0.0-1933); URINE EPITHELIAL CELLS 33.5 uL (0.0-38.8); URINE WBC 364.9 uL (0.0-23.2)
[2024-04-20 19:52] LABS: URINE CAST 0.58 uL (0.0-1.40); URINE RBC 1.9 uL (0.0-20.8)
[2024-04-20 19:56] LABS: ALBUMIN 3.7 gm/dL (3.4-5.0); BILIRUBIN TOTAL 0.52 mg/dL (0.3-1.2); CALCIUM 9.8 mg/dL (8.5-10.1); CREATININE SERUM 1.43 mg/dL (0.55-1.02); GFR 35.49; GLOBULINA 4.2 G/DL (2.4-3.5); POTASSIUM 4.39 mEq/L (3.5-5.1); TOTAL PROTEIN 7.9 gm/dL (6.4-8.2)
[2024-04-20] MEDS ORDERED: MEPERIDINE HCL/PF 50 MG/ML VIAL IM ONE (22:15)
--- NOTE | 2024-04-21 01:17 | NUR ---
SE INSERTA NGT #16 EN FOSA NASAL DERECHA, SE VERIFICA PATENTICIDAD Y SE FIJA DEBIDAMENTE. SE CONECTA A SUCCION BAJA E INTERMITENTE.
--- NOTE | 2024-04-21 07:24 | NUR ---
PTE ALERTA Y ORIENTADA X3 DEL TURNO ANTERIOR EN CAMA CON BARANDAS ELEVADAS POR SEGURIDAD. PTE CONSULTADA CON DRA DIANE STOCK. PTE NGT FOSA YADIRACHA
[2024-04-21] MEDS ORDERED: RINGERS SOLUTION,LACTATED 1,000 ML IV SCH (10:15)
[2024-04-21] MEDS ORDERED: ONDANSETRON HCL 2 MG/ML VIAL IV PRN (10:15)
[2024-04-21 10:44] VITALS: BP 151/54; O2SAT 100
[2024-04-21 10:45] VITALS: BP 151/54
[2024-04-21 11:35] LABS: ALBUMIN 3.3 gm/dL (3.4-5.0); CALCIUM 9.1 mg/dL (8.5-10.1); CREATININE SERUM 1.55 mg/dL (0.55-1.02); GFR 32.34; GLOBULINA 3.8 G/DL (2.4-3.5); INR 1.03; POTASSIUM 4.19 mEq/L (3.5-5.1); PROTHROMBIN TIME 11.2 SECONDS (9.0-11.5); TOTAL PROTEIN 7.1 gm/dL (6.4-8.2)
[2024-04-21] MEDS ORDERED: PANTOPRAZOLE SODIUM 40 MG/VIAL VIAL IV SCH (12:00)
[2024-04-21] MEDS ORDERED: MORPHINE SULFATE 4 MG/ML CARTRIDGE IV PRN (13:15)
[2024-04-21] MEDS ORDERED: hydrALAZINE HCL 20 MG VIAL IV PRN (15:00)
[2024-04-21] MEDS ORDERED: ACETAMINOPHEN 500 MG GEL..CAP PO PRN (15:00)
[2024-04-21 15:41] VITALS: BP 152/58; O2SAT 99
[2024-04-22 05:25] VITALS: BP 159/58; O2SAT 95
[2024-04-22 07:02] LABS: HEMATOCRIT 32.5 % (36.0-45.00); HEMOGLOBIN 11.2 g/dL (12.0-15.00); MEAN CELL VOLUME 79.8 fL (80.00-100.00); MEAN CORPUSCULAR HEMOGLOBIN 27.4 pg (27.00-32.0); MEAN CORPUSCULAR HGB CONC 34.3 g/dl (32.0-36.0); PLATELET COUNT 255 K/uL (150-450); RED BLOOD COUNT 4.08 M/uL (4.00-6.00); RED CELL DISTRIBUTION WIDTH 14.1 % (11.5-14.5)
[2024-04-22 07:37] LABS: ALBUMIN 3.1 gm/dL (3.4-5.0); CREATININE SERUM 1.42 mg/dL (0.55-1.02); GFR 35.78; PHOSPHOROUS 3.7 mg/dL (2.5-4.9); POTASSIUM 4.82 mEq/L (3.5-5.1)
[2024-04-22] MEDS ORDERED: ATENOLOL 25 MG TABLET PO SCH (09:00)
[2024-04-22 09:13] VITALS: BP 147/62; O2SAT 96
[2024-04-22] MEDS ORDERED: IRBESARTAN 300 MG TABLET PO SCH (15:55)
[2024-04-22] MEDS ORDERED: NEURONTIN300 MG PO (16:29)
[2024-04-22] MEDS ORDERED: LEVOFLOXACIN500 MG PO (16:29)
[2024-04-22] MEDS ORDERED: LEVSIN/SL0.125 MG SL (16:29)
[2024-04-22] MEDS ORDERED: ENOXAPARIN SODIUM 40 MG/0.4 ML SYRINGE SUBCUTANEO SCH (17:00)
== END 2024-04-22 17:32 | disposition home or self-care (01) | DRG 390 ==
LOC: ER 15:16 → SURG 04-21 10:28 → SEC-K 04-21 10:28 → SURG 04-21 16:04 → SURH 04-22 15:53
PROVIDERS: General Practice; ADMIT Surgery; ATTEND Surgery
DX: K56.609 Unspecified intestinal obstruction, unspecified as to partial versus complete obstruction (principal); R11.0 Nausea; E86.0 Dehydration; K59.00 Constipation, unspecified; R10.9 Unspecified abdominal pain; I10 Essential (primary) hypertension

== ENCOUNTER 2024-04-29 04:05 | Emergency (ER) | payer OTHER ==
[~2024-04-29] VITALS: Ht 167.6 cm; Wt 70.3 kg
[~2024-04-29 04:05] MED LIST changes: +NEURONTIN300 MG PO
[2024-04-29] MEDS ORDERED: PROMETHAZINE HCL 50 MG/ML AMPUL IM STA (06:52)
[2024-04-29] MEDS ORDERED: MEPERIDINE HCL/PF 50 MG/ML VIAL IM STA (06:52)
[2024-04-29] MEDS ORDERED: 0.9 % SODIUM CHLORIDE 1,000 ML IV ONE (07:00)
[2024-04-29] MEDS ORDERED: PROMETHAZINE HCL 50 MG/ML AMPUL IM ONE (07:13)
[2024-04-29 08:11] LABS: HEMATOCRIT 36.3 % (36.0-45.00); HEMOGLOBIN 12.3 g/dL (12.0-15.00); MEAN CELL VOLUME 81.1 fL (80.00-100.00); MEAN CORPUSCULAR HEMOGLOBIN 27.4 pg (27.00-32.0); MEAN CORPUSCULAR HGB CONC 33.9 g/dl (32.0-36.0); PLATELET COUNT 375 K/uL (150-450); RED BLOOD COUNT 4.48 M/uL (4.00-6.00); RED CELL DISTRIBUTION WIDTH 13.9 % (11.5-14.5)
[2024-04-29 08:31] LABS: INR 1.05; PARTIAL THROMBOPLASTIN TIME 26.3 SECONDS (22.0-34.0); PROTHROMBIN TIME 11.4 SECONDS (9.0-11.5)
[2024-04-29 08:37] LABS: ALBUMIN 3.9 gm/dL (3.4-5.0); BILIRUBIN TOTAL 0.55 mg/dL (0.3-1.2); BILIRUBIN,CONJUGATED 0.15 mg/dL (0.0-0.2); BILIRUBIN,UNCONJUGATED 0.4 mg/dL (0.0-0.6); CALCIUM 10.7 mg/dL (8.5-10.1); CREATININE SERUM 1.46 mg/dL (0.55-1.02); GFR 34.65; GLOBULINA 4.3 G/DL (2.4-3.5); POTASSIUM 4.11 mEq/L (3.5-5.1); TOTAL PROTEIN 8.2 gm/dL (6.4-8.2)
[2024-04-29 11:26] LABS: PH,URINE 7.5 (5.0-8.0); URINE APPEARANCE Cloudy; URINE BILIRRUBIN Negative (NEGATIVE); URINE BLOOD Negative; URINE COLOR Yellow; URINE GLUCOSE Negative (NEGATIVE); URINE KETONE Negative (NEGATIVE); URINE LEUKOCYTE Moderate; URINE NITRATE Negative; URINE PROTEIN Negative (NEGATIVE); URINE UROBILINOGEN 0.2 E.U./dl
[2024-04-29 11:29] LABS: URINE BACTERIA 198.1 uL (0.0-1933); URINE EPITHELIAL CELLS 13.7 uL (0.0-38.8)
[2024-04-29] MEDS ORDERED: MEPERIDINE HCL/PF 25 MG/ML VIAL IM STA (12:36)
[2024-04-29] MEDS ORDERED: HYOSCYAMINE SULFATE 0.125 MG TAB.SUBL ONE (12:45)
[2024-04-29] MEDS ORDERED: HYOSCYAMINE SULFATE 0.125 MG TAB.SUBL SL ONE (12:45)
== END 2024-04-29 12:58 | disposition home or self-care (01) ==
LOC: ER 04:08
PROVIDERS: General Practice
DX: R10.9 Unspecified abdominal pain (principal); I10 Essential (primary) hypertension; Z88.6 Allergy status to analgesic agent
CPT/HCPCS: 36415; 74022; 96365; 96366; 96372; 99283; J2550 ×2; J3490 ×2; J7030

== ENCOUNTER 2024-06-10 21:43 | Inpatient (IN) | payer OTHER ==
[~2024-06-10] VITALS: Ht 167.6 cm; Wt 65.3 kg
[2024-06-10] MEDS ORDERED: FAMOTIDINE/PF 20 MG in 0.9 % SODIUM CHLORIDE 8 ML IV PUSH STA (22:10)
[2024-06-10] MEDS ORDERED: KETOROLAC TROMETHAMINE 30 MG VIAL IV ONE (22:15)
[2024-06-10 23:13] LABS: HEMATOCRIT 35.8 % (36.0-45.00); HEMOGLOBIN 11.9 g/dL (12.0-15.00); MEAN CELL VOLUME 81.1 fL (80.00-100.00); MEAN CORPUSCULAR HGB CONC 33.3 g/dl (32.0-36.0); PLATELET COUNT 304 K/uL (150-450); RED BLOOD COUNT 4.41 M/uL (4.00-6.00); RED CELL DISTRIBUTION WIDTH 13.6 % (11.5-14.5)
[2024-06-10 23:57] LABS: ALBUMIN 3.7 gm/dL (3.4-5.0); BILIRUBIN TOTAL 0.63 mg/dL (0.3-1.2); CALCIUM 9.5 mg/dL (8.5-10.1); CREATININE SERUM 1.29 mg/dL (0.55-1.02); GFR 39.97; GLOBULINA 3.8 G/DL (2.4-3.5); POTASSIUM 3.99 mEq/L (3.5-5.1); TOTAL PROTEIN 7.5 gm/dL (6.4-8.2)
[2024-06-11] MEDS ORDERED: 0.9 % SODIUM CHLORIDE 1,000 ML IV SCH ×2 (00:15→18:15)
[2024-06-11] MEDS ORDERED: MORPHINE SULFATE 4 MG/ML VIAL IV ONE ×2 (00:15→11:30)
[2024-06-11] MEDS ORDERED: ONDANSETRON HCL 2 MG/ML VIAL IV ONE ×2 (11:30→16:00)
[2024-06-11] MEDS ORDERED: FAMOTIDINE/PF 20 MG/2 ML VIAL IV PUSH ONE (16:00)
[2024-06-11] MEDS ORDERED: ENALAPRILAT DIHYDRATE 1.25 MG/ML VIAL IV PRN (18:15)
[2024-06-11] MEDS ORDERED: MORPHINE SULFATE 2 MG/ML CARTRIDGE IV PRN (18:15)
[2024-06-11] MEDS ORDERED: ONDANSETRON HCL 4 MG in 0.9 % SODIUM CHLORIDE 50 ML IV PRN (18:15)
[2024-06-11 19:07] LABS: INR 0.99; PARTIAL THROMBOPLASTIN TIME 26.1 SECONDS (22.0-34.0); PROTHROMBIN TIME 10.8 SECONDS (9.0-11.5)
[2024-06-11 22:38] VITALS: BP 148/77; O2SAT 97
[2024-06-12] MEDS ORDERED: PIPERACILLIN/TAZOBACTAM SODIUM 2.25 GM in DEXTROSE 5 % IN WATER 50 ML IV SCH
[2024-06-12 00:30] VITALS: BP 144/71; O2SAT 97
[2024-06-12] MEDS ORDERED: FAMOTIDINE/PF 20 MG in 0.9 % SODIUM CHLORIDE 8 ML IV PUSH SCH (09:00)
[2024-06-12] MEDS ORDERED: ENOXAPARIN SODIUM 30 MG/0.3 ML SYRINGE SUBCUTANEO SCH (09:00)
[2024-06-12 09:07] VITALS: BP 149/65; O2SAT 96
[2024-06-12 12:46] LABS: PH,URINE 5.5 (5.0-8.0); URINE APPEARANCE Clear; URINE BILIRRUBIN Negative (NEGATIVE); URINE BLOOD Negative; URINE COLOR Yellow; URINE GLUCOSE Negative (NEGATIVE); URINE KETONE Trace (NEGATIVE); URINE LEUKOCYTE Trace; URINE NITRATE Negative; URINE PROTEIN Negative (NEGATIVE); URINE UROBILINOGEN 0.2 E.U./dl
[2024-06-12 12:59] LABS: URINE BACTERIA 141.9 uL (0.0-1933); URINE EPITHELIAL CELLS 8.6 uL (0.0-38.8); URINE WBC 20.3 uL (0.0-23.2)
[2024-06-12 13:05] LABS: URINE CAST 0.29 uL (0.0-1.40); URINE RBC 1.4 uL (0.0-20.8)
[2024-06-12 16:00] VITALS: BP 129/53; O2SAT 95
[2024-06-12] MEDS ORDERED: 0.9 % SODIUM CHLORIDE 500 ML IV ONE (17:45)
[2024-06-13] VITALS: BP 147/62; O2SAT 95
[2024-06-13 07:42] LABS: HEMATOCRIT 32.4 % (36.0-45.00); MEAN CELL VOLUME 81.7 fL (80.00-100.00); MEAN CORPUSCULAR HEMOGLOBIN 27.7 pg (27.00-32.0); MEAN CORPUSCULAR HGB CONC 33.9 g/dl (32.0-36.0); PLATELET COUNT 255 K/uL (150-450); RED BLOOD COUNT 3.96 M/uL (4.00-6.00)
[2024-06-13 08:18] LABS: INR 1.05; PARTIAL THROMBOPLASTIN TIME 29.1 SECONDS (22.0-34.0); PROTHROMBIN TIME 11.4 SECONDS (9.0-11.5)
[2024-06-13 08:21] LABS: CALCIUM 8.4 mg/dL (8.5-10.1); CREATININE SERUM 1.17 mg/dL (0.55-1.02); GFR 44.74; POTASSIUM 3.79 mEq/L (3.5-5.1)
[2024-06-13 09:03] VITALS: BP 158/62; O2SAT 96
[2024-06-13 16:00] VITALS: BP 171/63; O2SAT 97
[2024-06-13 18:06] LABS: CREATININE SERUM 1.2 mg/dL (0.55-1.02); GFR 43.45; MAGNESIUM 1.9 mg/dL (1.8-2.4); PHOSPHOROUS 3.1 mg/dL (2.5-4.9); POTASSIUM 4.27 mEq/L (3.5-5.1)
[2024-06-14 02:08] VITALS: BP 160/70; O2SAT 100
[2024-06-14 09:01] VITALS: BP 120/82; O2SAT 100
[2024-06-14 16:00] VITALS: BP 180/63; O2SAT 98
[2024-06-14 21:00] VITALS: BP 172/54
[2024-06-15] VITALS: BP 158/52; O2SAT 99
[2024-06-15 06:54] LABS: CALCIUM 9.3 mg/dL (8.5-10.1); CREATININE SERUM 1.07 mg/dL (0.55-1.02); GFR 49.59; PHOSPHOROUS 3.7 mg/dL (2.5-4.9); POTASSIUM 4.21 mEq/L (3.5-5.1)
[2024-06-15 08:00] VITALS: BP 140/66; O2SAT 98
[2024-06-15 16:34] VITALS: BP 173/57; O2SAT 100
[2024-06-16] VITALS: BP 142/57; O2SAT 95
[2024-06-16 08:00] VITALS: BP 155/60; O2SAT 98
[2024-06-16] MEDS ORDERED: LINZESS72 MCG PO (08:35)
[2024-06-16] MEDS ORDERED: IRBESARTAN 300 MG TABLET PO SCH (09:00)
[2024-06-16] MEDS ORDERED: ATENOLOL 50 MG TABLET PO SCH (09:00)
== END 2024-06-16 12:24 | disposition home or self-care (01) | DRG 389 ==
LOC: ER 21:45 → SURH 06-11 19:21
PROVIDERS: General Practice; Internal Medicine; ADMIT Surgery; ATTEND Surgery
DX: K56.50 Intestinal adhesions [bands], unspecified as to partial versus complete obstruction (principal); N17.9 Acute kidney failure, unspecified

== ENCOUNTER 2024-09-28 08:48 | Emergency (ER) | payer OTHER ==
[~2024-09-28] VITALS: Ht 167.6 cm; Wt 65.3 kg
[~2024-09-28 08:48] MED LIST changes: +LINZESS72 MCG PO
[2024-09-28] MEDS ORDERED: HYOSCYAMINE SULFATE 0.125 MG TAB.SUBL SL ONE (09:45)
[2024-09-28 10:37] LABS: BASO % 0.5 % (0.1-1.2); EOS # 0.01 (0.04-0.54); EOS % 0.1 % (0.7-7.0); HEMATOCRIT 35.6 % (34.1-44.9); HEMOGLOBIN 11.9 g/dL (11.2-15.7); LYMPH # 1.19 (1.18-3.74); LYMPH % 9.6 % (19.3-53.1); MEAN CORPUSCULAR HEMOGLOBIN 26.1 pg (25.6-32.2); MONO # 1.16 (0.24-0.82); MONO % 9.3 % (4.7-12.5); NEUT # 9.95 (1.56-6.13); NEUT % 79.8 % (34.0-71.1); PLATELET COUNT 193 K/uL (163-369); RED BLOOD COUNT 4.56 M/uL (3.93-5.22); RED CELL DISTRIBUTION WIDTH 13.9 % (11.6-14.4)
[2024-09-28 10:56] LABS: CALCIUM 9.2 mg/dL (8.5-10.1); CREATININE SERUM 1.43 mg/dL (0.55-1.02); GFR 35.4; POTASSIUM 3.84 mEq/L (3.5-5.1)
[2024-09-28] MEDS ORDERED: KETOROLAC TROMETHAMINE 30 MG VIAL IV ONE (11:45)
[2024-09-28 12:09] LABS: PH,URINE 7.5 (5.0-8.0); URINE APPEARANCE Clear; URINE BILIRRUBIN Negative (NEGATIVE); URINE BLOOD Negative; URINE COLOR Yellow; URINE GLUCOSE Negative (NEGATIVE); URINE KETONE Negative (NEGATIVE); URINE LEUKOCYTE Moderate; URINE NITRATE Negative; URINE PROTEIN Negative (NEGATIVE)
[2024-09-28 12:48] LABS: URINE BACTERIA SOME; URINE EPITHELIAL CELLS 0-4 /HPF; URINE RBC 0-3 /HPF
== END 2024-09-28 15:16 | disposition home or self-care (01) ==
LOC: ER 10:33
PROVIDERS: Emergency Medicine
DX: K57.30 Diverticulosis of large intestine without perforation or abscess without bleeding (principal); K59.00 Constipation, unspecified; I10 Essential (primary) hypertension

== ENCOUNTER 2025-01-26 22:15 | Emergency (ER) | payer OTHER ==
[~2025-01-26] VITALS: Ht 167.6 cm; Wt 65.3 kg
[2025-01-26] MEDS ORDERED: FAMOTIDINE/PF 20 MG/2 ML VIAL IV PUSH STA (23:16)
[2025-01-26] MEDS ORDERED: HYOSCYAMINE SULFATE 0.125 MG TAB.SUBL SL STA (23:16)
[2025-01-26] MEDS ORDERED: 0.9 % SODIUM CHLORIDE 500 ML IV ONE (23:30)
[2025-01-27] MEDS ORDERED: HYOSCYAMINE SULFATE 0.125 MG TAB.SUBL ONE ×2 (00:43→04:31)
[2025-01-27] MEDS ORDERED: FAMOTIDINE/PF 20 MG/2 ML VIAL ONE (00:43)
[2025-01-27 01:10] LABS: BASO % 0.3 % (0.1-1.2); EOS # 0.45 (0.04-0.54); EOS % 3.4 % (0.7-7.0); LYMPH # 2.72 (1.18-3.74); LYMPH % 20.6 % (19.3-53.1); MEAN PLATELET VOLUME 11.40 fl (9.4-12.4); MONO # 1.16 (0.24-0.82); MONO % 8.8 % (4.7-12.5); NEUT # 8.80 (1.56-6.13); NEUT % 66.5 % (34.0-71.1); RED CELL DISTRIBUTION WIDTH 13.4 % (11.6-14.4)
[2025-01-27 01:30] LABS: BUN CREA RATIO 9.0 (7.0-25.0); GFR 37.51; GLOBULINA 4.1 G/DL (2.4-3.5); GLUCOSE FASTING 105.0 mg/dL (65-100); OSMOLALITY SERUM 287.0 MOSM/KG (275-295)
[2025-01-27 01:31] LABS: ALT/SGPT 24.0 U/L (12-78); AST/SGOT 26.0 U/L (15-37); BILIRUBIN TOTAL 0.84 mg/dL (0.3-1.2)
[2025-01-27 01:37] LABS: CREATININE SERUM 1.36 mg/dL (0.55-1.02)
[2025-01-27] MEDS ORDERED: PROMETHAZINE HCL 25 MG/ML AMPUL ONE (02:16)
[2025-01-27] MEDS ORDERED: PROMETHAZINE HCL 25 MG/ML AMPUL IM ONE (02:30)
[2025-01-27] MEDS ORDERED: KETOROLAC TROMETHAMINE 30 MG VIAL IV STA (04:21)
[2025-01-27] MEDS ORDERED: HYOSCYAMINE SULFATE 0.125 MG TAB.SUBL SL ONE (04:30)
[2025-01-27] MEDS ORDERED: KETOROLAC TROMETHAMINE 30 MG VIAL ONE (04:31)
[2025-01-27] MEDS ORDERED: LEVSIN/SL0.125 MG SL (05:58)
== END 2025-01-27 06:06 ==
LOC: ER 22:15
PROVIDERS: General Practice
DX: R10.9 Unspecified abdominal pain (principal); I10 Essential (primary) hypertension

== ENCOUNTER 2025-02-20 13:38 | Inpatient (IN) | payer OTHER ==
[~2025-02-20] VITALS: Ht 152.4 cm; Wt 67.1 kg
[2025-02-20] MEDS ORDERED: 0.9 % SODIUM CHLORIDE 500 ML IV ONE (15:00)
[2025-02-20] MEDS ORDERED: FAMOTIDINE/PF 20 MG/2 ML VIAL IV ONE (15:00)
[2025-02-20] MEDS ORDERED: ONDANSETRON HCL 2 MG/ML VIAL IV ONE (15:00)
[2025-02-20] MEDS ORDERED: DIATRIZOATE MEGLUMINE, SODIUM 30 ML BOTTLE PO ONE (15:00)
[2025-02-20 16:37] LABS: BASO % 0.4 % (0.1-1.2); EOS # 0.38 (0.04-0.54); EOS % 2.8 % (0.7-7.0); LYMPH # 2.93 (1.18-3.74); LYMPH % 21.9 % (19.3-53.1); MEAN PLATELET VOLUME 12.10 fl (9.4-12.4); MONO # 1.03 (0.24-0.82); MONO % 7.7 % (4.7-12.5); NEUT # 8.91 (1.56-6.13); NEUT % 66.8 % (34.0-71.1); RED CELL DISTRIBUTION WIDTH 13.2 % (11.6-14.4)
[2025-02-20 16:55] LABS: INR 0.99
[2025-02-20 16:59] LABS: ALT/SGPT 27.0 U/L (12-78); AST/SGOT 31.0 U/L (15-37); BILIRUBIN TOTAL 0.75 mg/dL (0.3-1.2); BUN CREA RATIO 9.0 (7.0-25.0); CREATININE SERUM 1.21 mg/dL (0.55-1.02); GFR 42.92; GLOBULINA 4.1 G/DL (2.4-3.5); GLUCOSE FASTING 98.0 mg/dL (65-100); OSMOLALITY SERUM 288.0 MOSM/KG (275-295)
[2025-02-20] MEDS ORDERED: MORPHINE SULFATE 2 MG/ML SYRINGE IV STA (17:05)
[2025-02-20 20:26] LABS: URINE APPEARANCE Cloudy; URINE BILIRRUBIN Negative (NEGATIVE); URINE BLOOD Negative; URINE COLOR Yellow; URINE GLUCOSE Negative (NEGATIVE); URINE KETONE Trace (NEGATIVE); URINE LEUKOCYTE Moderate; URINE NITRATE Negative; URINE PROTEIN Negative (NEGATIVE); URINE UROBILINOGEN 0.2 E.U./dl
[2025-02-20 20:30] LABS: URINE BACTERIA 1319.8 uL (0.0-1933); URINE CAST 2.93 uL (0.0-1.40); URINE EPITHELIAL CELLS 84.3 uL (0.0-38.8); URINE RBC 4.9 uL (0.0-20.8); URINE WBC 224.7 uL (0.0-23.2)
[2025-02-20] MEDS ORDERED: PIPERACILLIN/TAZOBACTAM SODIUM 3.375 GM VIAL IV ONE (21:45)
[2025-02-20] MEDS ORDERED: ONDANSETRON HCL 4 MG in 0.9 % SODIUM CHLORIDE 50 ML IV PRN (23:45)
[2025-02-20] MEDS ORDERED: 0.9 % SODIUM CHLORIDE 1,000 ML IV SCH (23:45)
[2025-02-20] MEDS ORDERED: ACETAMINOPHEN 325 MG TABLET PO PRN (23:45)
[2025-02-20] MEDS ORDERED: MORPHINE SULFATE 2 MG/ML SYRINGE IV PRN (23:45)
[2025-02-20] MEDS ORDERED: ENALAPRILAT DIHYDRATE 1.25 MG/ML VIAL IV PRN (23:45)
[2025-02-21] MEDS ORDERED: PIPERACILLIN/TAZOBACTAM SODIUM 3.375 GM in DEXTROSE 5 % IN WATER 100 ML IV SCH (06:00)
[2025-02-21 07:09] VITALS: BP 150/70; O2SAT 99
[2025-02-21 08:55] VITALS: BP 177/64; O2SAT 99
[2025-02-21] MEDS ORDERED: ENOXAPARIN SODIUM 40 MG/0.4 ML SYRINGE SUBCUTANEO SCH (09:26)
[2025-02-21] MEDS ORDERED: ACETAMINOPHEN 500 MG GEL..CAP PO PRN (11:15)
[2025-02-21] MEDS ORDERED: PANTOPRAZOLE SODIUM 40 MG/VIAL VIAL IV SCH (12:00)
[2025-02-21] MEDS ORDERED: HYOSCYAMINE SULFATE 0.125 MG TAB.SUBL SL SCH (13:00)
[2025-02-21 16:52] VITALS: BP 165/63; O2SAT 95
[2025-02-22 00:41] VITALS: BP 143/56; O2SAT 98
[2025-02-22 08:00] VITALS: BP 166/67; O2SAT 98
[2025-02-22] MEDS ORDERED: IRBESARTAN 75 MG TABLET PO SCH (09:00)
[2025-02-22] MEDS ORDERED: ATENOLOL 25 MG TABLET PO SCH (09:00)
[2025-02-22 16:42] VITALS: BP 166/53; O2SAT 97
[2025-02-22 18:25] LABS: BASO % 0.6 % (0.1-1.2); EOS # 0.57 (0.04-0.54); EOS % 5.5 % (0.7-7.0); LYMPH # 2.08 (1.18-3.74); LYMPH % 20.2 % (19.3-53.1); MEAN PLATELET VOLUME 11.50 fl (9.4-12.4); MONO # 0.76 (0.24-0.82); MONO % 7.4 % (4.7-12.5); NEUT # 6.81 (1.56-6.13); NEUT % 66.0 % (34.0-71.1); RED CELL DISTRIBUTION WIDTH 13.2 % (11.6-14.4)
[2025-02-22 18:52] LABS: BUN CREA RATIO 16.0 (7.0-25.0); CREATININE SERUM 1.07 mg/dL (0.55-1.02); GFR 49.47; GLUCOSE FASTING 62.0 mg/dL (65-100); OSMOLALITY SERUM 286.0 MOSM/KG (275-295)
[2025-02-23 00:57] VITALS: BP 173/53; O2SAT 99
[2025-02-23 08:00] VITALS: BP 190/65; O2SAT 98
[2025-02-23] MEDS ORDERED: IRBESARTAN 75 MG TABLET PO NR (13:45)
[2025-02-23 16:08] VITALS: BP 146/78; O2SAT 99
[2025-02-24 00:30] VITALS: BP 147/75; O2SAT 98
[2025-02-24] MEDS ORDERED: IRBESARTAN 150 MG TABLET PO SCH (09:00)
[2025-02-24 09:27] VITALS: BP 188/67; O2SAT 99
[2025-02-24] MEDS ORDERED: PEPCID AC20 MG PO (14:12)
[2025-02-24] MEDS ORDERED: PROTONIX40 MG PO (14:13)
[2025-02-24] MEDS ORDERED: AMOX1TAB5 PO (14:13)
[2025-02-24] MEDS ORDERED: INTESTINEX680 M1 PO (14:13)
== END 2025-02-24 16:30 | disposition home or self-care (01) | DRG 389 ==
LOC: ER 13:38 → SURH 23:56
PROVIDERS: General Practice; Surgery; ADMIT Surgery; ATTEND Surgery
PROC: BW21ZZZ Computerized Tomography (CT Scan) of Abdomen and Pelvis (ICD-10-PCS; principal; 2025-02-20)
DX: K56.609 Unspecified intestinal obstruction, unspecified as to partial versus complete obstruction (principal); N17.9 Acute kidney failure, unspecified; K56.69 Other intestinal obstruction; K59.00 Constipation, unspecified; K57.90 Diverticulosis of intestine, part unspecified, without perforation or abscess without bleeding; E78.5 Hyperlipidemia, unspecified; I10 Essential (primary) hypertension; B02.9 Zoster without complications; K66.0 Peritoneal adhesions (postprocedural) (postinfection); E86.0 Dehydration; R11.2 Nausea with vomiting, unspecified; K52.9 Noninfective gastroenteritis and colitis, unspecified; R11.0 Nausea